=== PATIENT | female | born 1950 | race Hispanic/Latino ===

== ENCOUNTER → 2020-03-25 | Outpatient (CLI) | payer MEDICARE ==
[~2020-03-25] MED LIST: IOHEXOL-350 75 ML VIAL IV ONE
== END | disposition home or self-care (01) ==
LOC: RAH 15:10
PROVIDERS: ATTEND Internal Medicine Hematology & Oncology
DX: J90 Pleural effusion, not elsewhere classified (principal); I70.0 Atherosclerosis of aorta; R06.02 Shortness of breath; R60.1 Generalized edema; K76.0 Fatty (change of) liver, not elsewhere classified
CPT/HCPCS: 71275; Q9967